=== PATIENT | male | born 1965 | race Caucasian/White ===

== ENCOUNTER 2018-04-02 09:49 | Emergency (ER) | payer SELFPAY ==
[~2018-04-02] VITALS: Ht 177.8 cm; Wt 77.0 kg
[~2018-04-02 09:49] MED LIST: BUPR300T52 PO; CHOL500010 PO; CLON0.5T12 PO; DARU800T PO; DEXL60CA3 PO; EMTR1TAB12 PO; GABA-290 PO; HYDR-4001 PO; LITHTAB PO; LORA10TA7 PO; MULT-1146 PO; RITO100T PO
[2018-04-02 11:59] VITALS: BP 139/79
[2018-04-02] MEDS ORDERED: ERYTHROMYCIN BASE 0.5% OPHTH OINT 3.5GM RIGHTEYE ONE (12:45)
== END 2018-04-02 13:08 | disposition home or self-care (01) ==
LOC: ER 11:48
DX: H10.9 Unspecified conjunctivitis (principal); S90.411A Abrasion, right great toe, initial encounter; W22.8XXA Striking against or struck by other objects, initial encounter; R03.0 Elevated blood-pressure reading, without diagnosis of hypertension; Y93.89 Activity, other specified; Y92.89 Other specified places as the place of occurrence of the external cause; Z88.8 Allergy status to other drugs, medicaments and biological substances; Z88.5 Allergy status to narcotic agent; Z79.899 Other long term (current) drug therapy
CPT/HCPCS: 99283

== ENCOUNTER 2018-09-26 08:59 | Emergency (ER) | payer SELFPAY ==
[~2018-09-26] VITALS: Ht 177.8 cm; Wt 75.0 kg
[2018-09-26] MEDS ORDERED: OLANZAPINE 10 MG/VIAL IM STA (09:26)
[2018-09-26] MEDS ORDERED: TETANUS, DIPHTHERIA, PERTUSSIS VAC/PF 0.5ML (>7YR OLD) IM ONE (09:30)
[2018-09-26 10:34] LABS: CHLORIDE 105 mEq/L (98-107)
[2018-09-26 10:38] LABS: BASOPHILS % 0.2 % (0.0-2.0); EOSINOPHILS % 0.4 % (0.0-5.0); HEMATOCRIT. 39.8 % (42.0-52.0); HEMOGLOBIN. 13.6 g/dL (14.0-18.0); LYMPHOCYTES % 8.3 % (20.0-50.0); MEAN CORPUSCULAR HEMOGLOBIN 30.6 pg (28.0-32.0); MEAN CORPUSCULAR VOLUME 89.5 fL (80.0-94.0); MEAN PLATELET VOLUME 7.6 fl (7.4-10.4); MONOCYTES % 8.3 % (2.0-8.0); NEUTROPHILS % 82.8 % (40.0-76.0); PLATELET 327 x1000/uL (130-400); RED BLOOD CELL COUNT 4.45 mill/uL (4.7-6.1); RED CELL DISTRIBUTION WIDTH 13.9 % (11.6-14.6)
[2018-09-26 10:39] LABS: ETHANOL BLOOD < 10 mg/dL
[2018-09-26] MEDS ORDERED: POTASSIUM CHLORIDE 20MEQ TABLET SR PO ONE (14:00)
[2018-09-26 14:06] LABS: CLARITY URINE CLEAR (CLEAR); COLOR URINE YELLOW (YELLOW); KETONES URINE 1+ (NEGATIVE); LEUKOCYTE ESTERASE URINE NEGATIVE (NEGATIVE); NITRITE URINE NEGATIVE (NEGATIVE); OCCULT BLOOD URINE NEGATIVE (NEGATIVE); PH URINE 6.5 (4.5-8.0); PROTEIN URINE NEGATIVE (NEGATIVE); SPECIFIC GRAVITY URINE 1.013 (1.005-1.030)
[2018-09-26 14:26] LABS: *AMPHETAMINES SCREEN URINE PRESUMTIVE POSITIVE (NEGATIVE); *BARBITURATES SCREEN URINE NEGATIVE (NEGATIVE); *BENZODIAZEPINES SCREEN URINE NEGATIVE (NEGATIVE); *COCAINE SCREEN URINE NEGATIVE (NEGATIVE)
[2018-09-26 14:27] LABS: CANNABINOID URINE SCREEN PRESUMTIVE POSITIVE (NEGATIVE); METHADONE URINE SCREEN NEGATIVE (NEGATIVE); OPIATES URINE SCREEN NEGATIVE (NEGATIVE); PHENCYCLIDINE URINE SCREEN NEGATIVE (NEGATIVE)
[2018-09-26 17:00] VITALS: BP 102/70
[2018-09-28 15:16] LABS: HIV 1 ABS Positive (Negative); HIV 2 ABS Negative (Negative); HIV SCREEN 4G Reactive (Non Reactive); INTERPRETATION HIV-1 Positive (.)
== END 2018-09-26 19:30 | disposition home or self-care (01) ==
LOC: ER 08:59
DX: R45.1 Restlessness and agitation (principal); S00.81XA Abrasion of other part of head, initial encounter; X58.XXXA Exposure to other specified factors, initial encounter; Y93.89 Activity, other specified; Y92.9 Unspecified place or not applicable; F12.90 Cannabis use, unspecified, uncomplicated
CPT/HCPCS: 36415; 70450; 80053; 80305; 80307; 80320; 80329; 81003; 85025; 86701; 86702; 86703; 87389; 90471; 90715; 96372; 99284; J3490; G0480

== ENCOUNTER 2020-02-03 13:23 | Emergency (ER) | payer MEDICARE, MEDICAID ==
[~2020-02-03] VITALS: Ht 175.3 cm; Wt 73.0 kg
[~2020-02-03 13:23] MED LIST changes: -CLON0.5T12 PO; +CLON0.5T4 PO
[2020-02-03 13:25] VITALS: BP 180/102
[2020-02-03 14:54] LABS: BASOPHILS % 0.4 % (0.0-2.0); EOSINOPHILS % 2.1 % (0.0-5.0); HEMATOCRIT. 40.6 % (42.0-52.0); HEMOGLOBIN. 14.1 g/dL (14.0-18.0); LYMPHOCYTES % 11.3 % (20.0-50.0); MEAN CORPUSCULAR HEMOGLOBIN 31.7 pg (28.0-32.0); MEAN PLATELET VOLUME 7.7 fl (7.4-10.4); MONOCYTES % 9.6 % (2.0-8.0); NEUTROPHILS % 76.6 % (40.0-76.0); PLATELET 259 x1000/uL (130-400); RED BLOOD CELL COUNT 4.46 mill/uL (4.7-6.1)
[2020-02-03 15:00] LABS: CHLORIDE 112 mEq/L (98-107)
[2020-02-03 15:04] LABS: ETHANOL BLOOD < 10 mg/dL; PARTIAL THROMBOPLASTIN TIME 30.2 sec (23.4-31.0); PROTHROMBIN TIME 10.9 sec (9.6-11.0)
== END 2020-02-03 15:56 | disposition home or self-care (01) ==
LOC: ER 13:35
DX: Z20.828 Contact with and (suspected) exposure to other viral communicable diseases (principal); R09.89 Other specified symptoms and signs involving the circulatory and respiratory systems; I10 Essential (primary) hypertension; F12.90 Cannabis use, unspecified, uncomplicated; F20.9 Schizophrenia, unspecified; Z79.899 Other long term (current) drug therapy
CPT/HCPCS: 36415; 70490; 71250; 80048; 80320; 85025; 86850; 86900; 93005; 99284; G0480